=== PATIENT | male | born 1990 | race Caucasian/White ===

== ENCOUNTER → 2024-07-01 | Outpatient (REF) | payer BC ==
[2024-07-01 14:18] LABS: SEMEN APPEARANCE OPAQUE (OPAQUE); SEMEN VISCOSITY LIQUID (LIQUID); SEMEN VOLUME 1.9 ml (2.0-5.0); SEMEN pH 8.5 (7.0-8.0)
[2024-07-01 14:19] LABS: SPERM CONCENTRATION 10.9 M/ml (>=15.0); WBC CONCENTRATION >1 M/ml (<=1 M/ml)
== END ==
LOC: M LAB REF 14:14
PROVIDERS: ATTEND Nurse Practitioner Family
DX: Z31.41 Encounter for fertility testing (principal)

== ENCOUNTER → 2024-09-19 | Outpatient (REF) | payer BC ==
[2024-09-19 10:35] LABS: SEMEN APPEARANCE OPAQUE (OPAQUE); SEMEN VISCOSITY LIQUID (LIQUID); SEMEN VOLUME 12.3 ml (2.0-5.0); SEMEN pH 8.5 (7.0-8.0); WBC CONCENTRATION >1 M/ml (<=1 M/ml)
== END ==
LOC: M LAB REF 10:14
PROVIDERS: ATTEND Specialist
DX: N46.9 Male infertility, unspecified (principal)